=== PATIENT | male | born 1980 | race Caucasian/White ===

== ENCOUNTER 2018-11-27 03:00 | Emergency (ER) | payer OTHER, SELFPAY ==
[~2018-11-27] VITALS: Ht 182.9 cm; Wt 72.1 kg
[2018-11-27] MEDS ORDERED: DEXAMETHASONE 4 MG TABLET PO ONE (03:30)
[2018-11-27] MEDS ORDERED: IPRATRPIUM/ALBUTEROL 0.5/2.5MG 3 ML NEBU. NEB ONE (03:45)
[2018-11-27] MEDS ORDERED: ALBU2.5V8 INH (04:04)
[2018-11-27] MEDS ORDERED: PRED20TA PO (04:04)
--- NOTE | 2018-11-27 04:04 | PHYS DOC ---
Past Medical History Past Medical History: No Pertinent History Past Surgical History: No Surgical History Smoking: Cigarettes, 1 Pack Per Day Alcohol Use: None Drug Use: None Adult General Chief Complaint Chief Complaint: SHORTNESS OF BREATH HPI HPI Patient is a 38 year old male who presents with 2 days of increased shortness of breath and cough that was acutely exacerbated this morning at approximately 1:30 AM. Patient reports a similar episode that occurred 2 months ago in which he presented to the emergency department. He received a breathing treatment, p rednisone, and an inhaler. These interventions improved his symptoms for a time but he began to worsen again once his inhaler ran out about one week prior to presentation today. Patient has been unable to follow up with primary care. He denies any nausea, vomiting, fever, or chills. He also denies any chest pain or syncope. Review of systems is positive for periodic lightheadedness worse with increased coughing spells. He has no other complaints at this time. Review of Systems Review of Systems Constitutional: Denies fever or chills [] Eyes: Denies change in visual acuity, redness, or eye pain [] HENT: Reports nasal congestion; denies sore throat [] Respiratory: Endorses cough and shortness of breath [] Cardiovascular: Denies chest pain or palpitations. GI: Denies abdominal pain, nausea, vomiting, or diarrhea [] : Denies dysuria or hematuria [] Integument: Denies rash or skin lesions [] Neurologic: Denies headache, focal weakness or sensory changes [] Complete systems were reviewed and found to be within normal limits, except as documented in this note. Current Medications Current Medications Current Medications Medications (Trade) Dose Ordered Sig/Royer Start Time Stop Time Status Last Admin Dose Admin Albuterol/ Ipratropium (Duoneb) 3 ml 1X ONCE 11/27/18 03:45 11/27/18 03:46 DC 11/27/18 03:50 3 ML Dexamethasone (Decadron) 10 mg 1X ONCE 11/27/18 03:30 11/27/18 03:31 DC 11/27/18 03:37 10 MG Allergies Allergies Allergies Coded Allergies Type Severity Reaction Last Updated Verified No Known Drug Allergies 11/27/18 No Physical Exam Physical Exam Constitutional: Well developed, well nourished, mild distress, wheezing. [] HENT: Normocephalic, atraumatic, bilateral TMs normal, oropharynx moist, no oral exudates Eyes: EOMI, conjunctiva normal, no discharge. [] Cardiovascular: Heart rate regular rhythm, no murmur [] Lungs & Thorax: Diffuse wheezing. no crackles, rhonchi, Abdomen: Soft, no tenderness, no masses, no pulsatile masses. [] Skin: Warm, dry, no erythema, no rash. [] Extremities: No tenderness, ROM intact, no edema. [] Neurologic: Alert and oriented X 3, normal motor function, normal sensory function, no focal deficits noted. [] Psychologic: Affect normal, judgement normal, mood normal. [] Current Patient Data Vital Signs Vital Signs Date Time Temp Pulse Resp B/P (MAP) Pulse Ox O2 Delivery O2 Flow Rate FiO2 11/27/18 03:52 91 Room Air 11/27/18 03:12 97.5 75 18 134/68 (90) 97.5 EKG EKG [] Radiology/Procedures Radiology/Procedures 2 view chest X ray ordered (preliminary reading by ED physician shows no consolidations or effusions).[] Course & Med Decision Making Course & Med Decision Making Mr. Cleary is a 38-year-old male who presents with 2 days of increased shortness of breath and cough acutely exacerbated this morning approximately 1:30 AM. Dif fuse wheezing noted upon arrival. Chest x-ray was ordered and showed no consolidations. Symptomatic treatment provided. Patient educated on proper inhaler use with a spacer, which was provided in department. Patient stable for discharge with outpatient follow-up with PCP. Discussed findings and plan with patient, who acknowledges understanding and agreement. Dragon Disclaimer Dragon Disclaimer This electronic medical record was generated, in whole or in part, using a voice recognition dictation system. Departure Departure Impression: Primary Impression: Acute bronchitis Disposition: HOME, SELF-CARE Condition: IMPROVED Patient Instructions: Inhaler, Using Your, [id number], Shortness of Breath, [id number], Smoking Cessation Scripts Prednisone (PREDNISONE) 20 Mg Tablet 2 TAB PO DAILY PRN for COUGH for 4 Days, #8 TAB Start this medication tomorrow 11/28/2018 Prov: LIONEL VICENTE DO 11/27/18 Albuterol Sulfate (PROAIR HFA INHALER) 8.5 Gm Hfa.aer.ad 1 PUFF INH PRN Q6HRS PRN for SHORTNESS OF BREATH, #1 INHALER 0 Refills Prov: LIONEL VICENTE DO 11/27/18 Problem Qualifiers Primary Impression: Acute bronchitis Bronchitis organism: unspecified organism Qualified Codes: J20.9 - Acute bronchitis, unspecified LIONEL VICENTE DO November 27, 2018 04:04
[2018-11-27 04:30] VITALS: BP 129/79
--- NOTE | 2018-11-27 05:48 | RAD ---
PA and lateral chest. HISTORY: Cough PA and lateral views were taken of the chest. Lungs are clear. Heart is normal in size without heart failure. There is no effusion. IMPRESSION: 1. No acute chest disease. Electronically signed by: Reyes Car MD (11/27/2018 5:45 AM) [id number]
== END 2018-11-27 04:30 | disposition home or self-care (01) ==
LOC: ER 03:00
DX: J20.9 Acute bronchitis, unspecified (principal); F17.210 Nicotine dependence, cigarettes, uncomplicated
CPT/HCPCS: 71046; 94640; 99284; J7620; J8540

== ENCOUNTER 2019-11-10 09:00 | Emergency (ER) | payer OTHER ==
[~2019-11-10] VITALS: Ht 182.9 cm; Wt 89.0 kg
[~2019-11-10 09:00] MED LIST: ALBU2.5V8 INH; PRED20TA PO
[2019-11-10 09:07] VITALS: BP 117/67
[2019-11-10] MEDS: KETOROLAC 30 MG/ML VIAL. IV ONE (09:28)
[2019-11-10 09:29] LABS: BASO # 0.1 x10^3/uL (0.0-0.2); BASO % 1 % (0-3); EOS # 0.4 x10^3/uL (0.0-0.7); EOS % 5 % (0-3); HEMATOCRIT 45.7 % (39.0-53.0); HEMOGLOBIN 15.4 g/dL (13.0-17.5); LYMPH # 2.8 x10^3/uL (1.0-4.8); LYMPH % 34 % (24-48); MEAN CORPUSCULAR HEMOGLOBIN 31 pg (25-35); MEAN CORPUSCULAR HGB CONC 34 g/dL (31-37); MEAN CORPUSCULAR VOLUME 92 fL (79-100); MONO # 0.7 x10^3/uL (0.0-1.1); MONO % 8 % (0-9); NEUT # 4.2 x10^3/uL (1.8-7.7); NEUT % 52 % (31-73); PLATELET COUNT 294 x10^3/uL (140-400); RED BLOOD COUNT 4.98 x10^6/uL (4.30-5.70); RED CELL DISTRIBUTION WIDTH 13.8 % (11.5-14.5); WHITE BLOOD COUNT 8.1 x10^3/uL (4.0-11.0)
[2019-11-10] MEDS: IV NORMAL SALINE 1000ML BAG 1,000 ML IV ONE (09:29)
[2019-11-10 09:33] LABS: BILIRUBIN,URINE NEGATIVE (NEG); CLARITY,URINE CLEAR; COLOR,URINE YELLOW; NITRITE,URINE NEGATIVE (NEG); PROTEIN,URINE NEGATIVE (NEG-TRACE); UROBILINOGEN,URINE 0.2 mg/dL (0.2 mg/dL)
[2019-11-10 09:45] LABS: CREATININE 1.1 mg/dL (0.7-1.3); GFR 74.1; POTASSIUM 3.8 mmol/L (3.5-5.1)
[2019-11-10 09:45] LABS: BACTERIA,URINE FEW /HPF (0-FEW); RBC,URINE >40 /HPF (0-2); SQUAMOUS EPITHELIAL CELL,UR FEW /LPF
[2019-11-10 09:50] LABS: ALBUMIN 4.1 g/dL (3.4-5.0); ALBUMIN/GLOBULIN RATIO 1.1 (1.0-1.7); TOTAL BILIRUBIN 0.6 mg/dL (0.2-1.0); TOTAL PROTEIN 7.7 g/dL (6.4-8.2)
--- NOTE | 2019-11-10 09:54 | RAD ---
Abdominal and Pelvis CT, Without Contrast: History: Left flank pain Comparison: None. Procedure: Axial images are obtained of the abdomen and pelvis, without IV or oral contrast. Oral Contrast: No Findings: Evaluation of solid organs is limited without contrast. Liver: Normal. Spleen: Normal. Pancreas: Normal. Adrenal Glands: Normal. Kidneys: There is moderate left hydroureter and left hydronephrosis secondary to an 8 mm stone in the distal ureter at the left UVJ. There are several 1 mm nonobstructive stones in the renal pelvises bilaterally. There is no free air or free fluid. There is no lymphadenopathy. The appendix is normal. The prostate is not significantly enlarged. There is no pericolonic inflammation identified. Impression: 1. Moderate left hydroureter and left hydronephrosis secondary to a 1 mm stone at the UVJ. 2. Multilevel tiny nonobstructive stones the renal pelvises bilaterally. End impression PQRS Compliance Statement: One or more of the following individualized dose reduction techniques were utilized for this examination: 1. Automated exposure control 2. Adjustment of the mA and/or kV according to patient size 3. Use of iterative reconstruction technique Electronically signed by: Bandar England III, MD (11/10/2019 9:51 AM) [id number]
--- NOTE | 2019-11-10 10:08 | PHYS DOC ---
Past Medical History Past Medical History: No Pertinent History Past Surgical History: No Surgical History Smoking Status: Current Every Day Smoker Alcohol Use: None Drug Use: None General Adult EDM: Chief Complaint: FLANK PAIN HPI: HPI: Patient is a 39-year-old male who presents today with a one-week history of pain in his left flank that is radiating to his groin. He states is been worse over the last day or so. He denies any fever chills or sweats. He has had some nausea but no vomiting. He denies any dysuria or gross hematuria. Currently he states the pain is moderate and sharp in nature. [] Review of Systems: Review of Systems: Constitutional: Denies fever or chills. [] Eyes: Denies change in visual acuity. [] HENT: Denies nasal congestion or sore throat. [] Respiratory: Denies cough or shortness of breath. [] Cardiovascular: Denies chest pain or edema. [] GI: Denies abdominal pain, nausea, vomiting, bloody stools or diarrhea. [] : Denies dysuria. [] Musculoskeletal: Reports flank pain. [] Integument: Denies rash. [] Neurologic: Denies headache, focal weakness or sensory changes. [] Endocrine: Denies polyuria or polydipsia. [] Lymphatic: Denies swollen glands. [] Psychiatric: Denies depression or anxiety. [] Heart Score: Risk Factors: Risk Factors: DM, Current or recent (<one month) smoker, HTN, HLP, family history of CAD, obesity. Risk Scores: Score 0 - 3: 2.5% MACE over next 6 weeks - Discharge Home Score 4 - 6: 20.3% MACE over next 6 weeks - Admit for Clinical Observation Score 7 - 10: 72.7% MACE over next 6 weeks - Early Invasive Strategies Current Medications: Current Medications Medications (Trade) Dose Ordered Sig/Royer Start Time Stop Time Status Last Admin Dose Admin Ketorolac Tromethamine (Toradol 30mg Vial) 30 mg 1X ONCE 11/10/19 09:30 11/10/19 09:31 DC 11/10/19 09:28 30 MG Sodium Chloride 1,000 ml @ 1,000 mls/hr 1X ONCE 11/10/19 09:30 11/10/19 10:07 DC 11/10/19 09:29 1,000 MLS/HR Allergies: Allergies: Allergies Coded Allergies Type Severity Reaction Last Updated Verified No Known Drug Allergies 11/27/18 No Physical Exam: PE: Constitutional: Well developed, well nourished, mild to moderate distress, non- toxic appearance. [] HENT: Normocephalic, atraumatic, bilateral external ears normal, oropharynx moist, no oral exudates, nose normal. [] Eyes: PERRLA, EOMI, conjunctiva normal, no discharge. [] Neck: Normal range of motion, no tenderness, supple, no stridor. [] Cardiovascular:Heart rate regular rhythm, no murmur [] Lungs & Thorax: Bilateral breath sounds clear to auscultation [] Abdomen: Bowel sounds normal, soft, no tenderness, no masses, no pulsatile masses. [] Skin: Warm, dry, no erythema, no rash. [] Back: No tenderness, no CVA tenderness. [] Extremities: No tenderness, no cyanosis, no clubbing, ROM intact, no edema. [] Neurologic: Alert and oriented X 3, normal motor function, normal sensory function, no focal deficits noted. [] Psychologic: Affect normal, judgement normal, mood normal. [] Current Patient Data: Labs: Laboratory Tests Test 11/10/19 09:10 11/10/19 09:14 Urine Collection Type Unknown Urine Color Yellow Urine Clarity Clear Urine pH 6.0 (<5.0-8.0) Urine Specific [place] 1.020 (1.000-1.030) Urine Protein Negative mg/dL (NEG-TRACE) Urine Glucose (UA) Negative mg/dL (NEG) Urine Ketones (Stick) Negative mg/dL (NEG) Urine Blood Large (NEG) Urine Nitrite Negative (NEG) Urine Bilirubin Negative (NEG) Urine Urobilinogen Dipstick 0.2 mg/dL (0.2 mg/dL) Urine Leukocyte Esterase Trace (NEG) Urine RBC >40 /HPF (0-2) Urine WBC 1-4 /HPF (0-4) Urine Squamous Epithelial Cells Few /LPF Urine Bacteria Few /HPF (0-FEW) Urine Mucus Mod /LPF White Blood Count 8.1 x10^3/uL (4.0-11.0) Red Blood Count 4.98 x10^6/uL (4.30-5.70) Hemoglobin 15.4 g/dL (13.0-17.5) Hematocrit 45.7 % (39.0-53.0) Mean Corpuscular Volume 92 fL (79-100) Mean Corpuscular Hemoglobin 31 pg (25-35) Mean Corpuscular Hemoglobin Concent 34 g/dL (31-37) Red Cell Distribution Width 13.8 % (11.5-14.5) Platelet Count 294 x10^3/uL (140-400) Neutrophils (%) (Auto) 52 % (31-73) Lymphocytes (%) (Auto) 34 % (24-48) Monocytes (%) (Auto) 8 % (0-9) Eosinophils (%) (Auto) 5 % (0-3) H Basophils (%) (Auto) 1 % (0-3) Neutrophils # (Auto) 4.2 x10^3/uL (1.8-7.7) Lymphocytes # (Auto) 2.8 x10^3/uL (1.0-4.8) Monocytes # (Auto) 0.7 x10^3/uL (0.0-1.1) Eosinophils # (Auto) 0.4 x10^3/uL (0.0-0.7) Basophils # (Auto) 0.1 x10^3/uL (0.0-0.2) Sodium Level 140 mmol/L (136-145) Potassium Level 3.8 mmol/L (3.5-5.1) Chloride Level 102 mmol/L (98-107) Carbon Dioxide Level 26 mmol/L (21-32) Anion Gap 12 (6-14) Blood Urea Nitrogen 12 mg/dL (8-26) Creatinine 1.1 mg/dL (0.7-1.3) Estimated GFR (Cockcroft-Gault) 74.1 BUN/Creatinine Ratio 11 (6-20) Glucose Level 99 mg/dL (70-99) Calcium Level 9.0 mg/dL (8.5-10.1) Total Bilirubin 0.6 mg/dL (0.2-1.0) Aspartate Amino Transferase (AST) 25 U/L (15-37) Alanine Aminotransferase (ALT) 23 U/L (16-63) Alkaline Phosphatase 73 U/L (46-116) Total Protein 7.7 g/dL (6.4-8.2) Albumin 4.1 g/dL (3.4-5.0) Albumin/Globulin Ratio 1.1 (1.0-1.7) Lipase 212 U/L (73-393) Laboratory Tests 11/10/19 09:14 Laboratory Tests 11/10/19 09:14 Vital Signs: Vital Signs Date Time Temp Pulse Resp B/P (MAP) Pulse Ox O2 Delivery O2 Flow Rate FiO2 11/10/19 09:07 97.8 89 117/67 (84) 99 Room Air 97.8 EKG: EKG: [] Radiology/Procedures: Radiology/Procedures: []PROCEDURE: CT ABDOMEN PELVIS WO CONTRAST Abdominal and Pelvis CT, Without Contrast: History: Left flank pain Comparison: None. Procedure: Axial images are obtained of the abdomen and pelvis, without IV or oral contrast. Oral Contrast: No Findings: Evaluation of solid organs is limited without contrast. Liver: Normal. Spleen: Normal. Pancreas: Normal. Adrenal Glands: Normal. Kidneys: There is moderate left hydroureter and left hydronephrosis secondary to an 8 mm stone in the distal ureter at the left UVJ. There are several 1 mm nonobstructive stones in the renal pelvises bilaterally. There is no free air or free fluid. There is no lymphadenopathy. The appendix is normal. The prostate is not significantly enlarged. There is no pericolonic inflammation identified. Impression: 1. Moderate left hydroureter and left hydronephrosis secondary to a 1 mm stone at the UVJ. 2. Multilevel tiny nonobstructive stones the renal pelvises bilaterally. Course & Med Decision Making: Course & Med Decision Making Pertinent Labs and Imaging studies reviewed. (See chart for details) [ED course: Evaluation reveals a 39-year-old male with left flank pain. He was given IV fluids and Toradol during his stay in the department which did help alleviate his symptoms. Unfortunately the patient eloped from the emergency department prior to receiving his discharge instructions or diagnosis.] Dragon Disclaimer: Dragon Disclaimer: This electronic medical record was generated, in whole or in part, using a voice recognition dictation system. Departure Departure Impression: Primary Impression: Ureteral stone with hydronephrosis Disposition: AGAINST MEDICAL ADVICE Condition: STABLE Referrals: NO PCP (PCP) Patient Instructions: Diet for Kidney Stones, Kidney Stones Scripts Ketorolac Tromethamine (KETOROLAC TROMETHAMINE) 10 Mg Tablet 1 TAB PO TID, #15 TAB Prov: ROXI BEAN DO 11/10/19 Tamsulosin Hcl (FLOMAX) 0.4 Mg Cap.er.24h 1 CAP PO DAILY, #30 CAP 11 Refills Prov: ROXI BEAN DO 11/10/19 ROXI BEAN DO November 10, 2019 10:08
[2019-11-10] MEDS ORDERED: TAMSULOSIN 0.4 MG CAP.ER.24H. PO ONE (10:15)
[2019-11-10] MEDS ORDERED: TAMS0.4C97 PO (10:22)
[2019-11-10] MEDS ORDERED: KETO10TA PO (10:22)
== END 2019-11-10 10:05 | disposition left against medical advice (07) ==
LOC: ER 09:00
DX: N13.2 Hydronephrosis with renal and ureteral calculous obstruction (principal); F17.200 Nicotine dependence, unspecified, uncomplicated
CPT/HCPCS: 74176; 80053; 81001; 83690; 85025; 87086; 87491; 87591; 96374; 99284; J1885; J7030